=== PATIENT | male | born 1980 | race Caucasian/White ===

== ENCOUNTER 2020-08-12 11:03 | Outpatient (NON) | payer BC, SELFPAY ==
[2020-08-12 23:31] LABS: SARS-CoV-2 RNA PCR Negative
== END 2020-08-12 11:04 ==
PROVIDERS: PCP Nurse Practitioner Family; Visit Provider Registered Nurse
DX: Z20.828 Contact with and (suspected) exposure to other viral communicable diseases (principal); R05 Cough; R09.81 Nasal congestion; J02.9 Acute pharyngitis, unspecified
CPT/HCPCS: 87635; C9803; U0003